=== PATIENT | female | born 1975 | race Caucasian/White ===

== ENCOUNTER 2016-10-18 18:46 | Emergency (ER) | payer SELFPAY ==
[2016-10-18 19:49] LABS: HEMOGLOBIN 15.1 gm/dl (12.3-15.3); WHITE BLOOD COUNT 5.5 K/UL (4.5-11.0)
[2016-10-18 20:12] LABS: BUN/CREATININE RATIO 7 (0-10)
== END 2016-10-19 07:50 | disposition home or self-care (01) ==
LOC: ER1 18:46
PROVIDERS: Emergency Medicine
DX: E86.0 Dehydration (principal); R00.0 Tachycardia, unspecified; R65.10 Systemic inflammatory response syndrome (SIRS) of non-infectious origin without acute organ dysfunction
CPT/HCPCS: 36415; 71010; 80053; 80307; 81001; 82550; 82553; 83605; 83874; 83880; 84439; 84443; 84484; 84702; 84703; 85025; 85379; 85610; 85730; 87040; 87081; 87086; 87880; 93005; 96360; 96361; 96372; 99285; J0561; J7050; Q9963

== ENCOUNTER → 2020-10-09 | Outpatient (CLI) | payer OTHER ==
[2020-10-09 15:25] LABS: HEMOGLOBIN 14.1 gm/dl (12.3-15.3); RED BLOOD COUNT 4.57 M/UL (4.00-5.10); WHITE BLOOD COUNT 11.9 K/UL (4.5-11.0)
[2020-10-09 15:47] LABS: BUN/CREATININE RATIO 17 (0-10)
[2020-10-10 08:13] LABS: THYROXINE (T4) 7.1 ug/dL (4.5-12.0); VITAMIN D, 25-HYDROXY 14.5 ng/mL (30.0-100.0)
== END ==
LOC: LAB 14:27
PROVIDERS: Nurse Practitioner
DX: R53.83 Other fatigue (principal); G25.81 Restless legs syndrome
CPT/HCPCS: 36415; 80053; 80061; 84436; 84443; 84480; 85025

== ENCOUNTER → 2021-01-02 | Outpatient (CLI) | payer OTHER ==
[2021-01-02 11:04] LABS: BUN/CREATININE RATIO 14 (0-10)
== END ==
LOC: LAB 10:10
PROVIDERS: Nurse Practitioner
DX: G25.81 Restless legs syndrome (principal); E55.9 Vitamin D deficiency, unspecified; E78.5 Hyperlipidemia, unspecified
CPT/HCPCS: 36415; 80053; 80061

== ENCOUNTER → 2021-03-18 | Outpatient (CLI) | payer OTHER ==
[2021-03-18 13:02] LABS: HEMOGLOBIN 14.9 gm/dl (12.3-15.3); RED BLOOD COUNT 4.88 M/UL (4.00-5.10); WHITE BLOOD COUNT 8.4 K/UL (4.5-11.0)
[2021-03-18 13:29] LABS: BUN/CREATININE RATIO 13 (0-10)
[2021-03-19 08:13] LABS: VITAMIN D, 25-HYDROXY 74.1 ng/mL (30.0-100.0)
== END ==
LOC: LAB 12:10
PROVIDERS: Nurse Practitioner
DX: E55.9 Vitamin D deficiency, unspecified (principal); E78.5 Hyperlipidemia, unspecified; G25.81 Restless legs syndrome; I10 Essential (primary) hypertension
CPT/HCPCS: 80053; 80061; 84436; 84443; 84480; 85025

== ENCOUNTER 2022-05-05 21:31 | Emergency (ER) | payer OTHER ==
[2022-05-06] MEDS ORDERED: MEDROL DOSEPAK 24 MG PO (00:14)
== END 2022-05-06 00:38 | disposition home or self-care (01) ==
LOC: ER1 21:31
DX: L50.0 Allergic urticaria (principal)
CPT/HCPCS: 96374; 96375; 99283; J1200; J2930